=== PATIENT | male | born 1995 | race Caucasian/White ===

== ENCOUNTER 2023-09-04 15:21 | Emergency (ER) | payer OTHER, SELFPAY ==
--- NOTE | ~2023-09-04 | CT_ITS ---
EXAMINATION: CT abdomen pelvis w con DATE: 09/04/2023 17:04 INDICATION: RLQ pain TECHNIQUE: Computed tomography (CT) of the abdomen and pelvis was performed with 100 mL Omnipaque-350 intravenous contrast. Automated exposure control and iterative reconstruction technique were employe d. The dose-length product was 843.52 mGy-cm. COMPARISON: None. FINDINGS: Lower thorax: Unremarkable Liver: Mildly enlarged. Biliary/Gallbladder: Gallbladder is normal. No bile duct dilation. Pancreas: No mass or duct dilation. Spleen: Normal. Adrenals:No mass. Kidneys: No suspicious mass, obstructing stone, or hydronephrosis. GI tract: No small or large bowel dilation. Normal appendix. Mildly inflamed epiploic appendage exten ding off the anteromedial aspect of the ascending colon. Mesentery/Peritoneum: No ascites, mass, or free air. Retroperitoneum: No mass. Pelvis: Pelvic organs are within normal limits. Soft Tissues: Soft tissues and body wall unremarkable. Bones: No acute osseous finding. IMPRESSION: Mild hepatomegaly. Epiploic appendagitis of the ascending colon. Reviewed, dictated and finalized at location K.
[2023-09-04 15:35] VITALS: BP 141/96; PULSE 114; RESP 16; TEMP 36.5; O2SAT 100
[2023-09-04 16:18] VITALS: BP 133/86; PULSE 91; RESP 18; O2SAT 100
[2023-09-04 16:23] LABS: Basophils Absolute Auto 0.1 K/mm3 (0.0-0.1); Basophils Percent Auto 0.8 % (0.2-1.2); Eosinophils Absolute Auto 0.2 K/mm3 (0-0.3); Eosinophils Percent Auto 2.7 % (0-4.4); Hematocrit 48.8 % (42.0-52.0); Hemoglobin 17.1 g/dL (14.0-18.0); Immature Granulocyte Absolute 0.03 K/mm3 (0.00-0.031); Immature Granulocyte Percent A 0.4 % (0-0.5); Lymphocytes Percent Auto 32.2 % (18.3-44.2); Mean Corpuscular Hemoglobin 30.1 pg (26-34); Mean Corpuscular Volume 85.8 fl (80-100); Mean Platelet Volume 10.6 fl (7.4-10.4); Monocytes Absolute Auto 0.6 K/mm3 (0.1-0.6); Monocytes Percent Auto 8.7 % (2.6-8.5); Neutrophils Percent Auto 55.2 % (45.5-73.1); Platelet Count Result 242 k/mm3 (150-375); Red Blood Count 5.69 M/mm3 (4.6-6.20); Red Cell Distribution Width 12.9 % (11.5-14.5); White Blood Count 7.2 K/mm3 (4.5-10.0)
[2023-09-04 16:25] LABS: Appearance Urine Clear (Clear); Bilirubin Urine Negative (Negative); Blood Urine Negative (Negative); Color Urine Yellow (Yellow); Glucose Urine UA Negative (Negative); Ketones Urine Negative (Negative); Leukocyte Esterase Ur Negative LEU/UL (Negative); Nitrate Urine Negative (Negative); Protein Urine Negative (Negative); Specific Grav Ur 1.012 (1.001-1.035)
[2023-09-04 16:28] LABS: Add Urine Microscopic? NO
[2023-09-04 16:37] LABS: Alanine Aminotransferase 38 U/L (6-50); Alkaline Phosphatase 102 U/L (38-126); Anion Gap 9 mmol/L (4-12); Aspartate Amino Transferase 29 U/L (17-59); Bilirubin,Total 0.7 mg/dL (0.2-1.3); Blood Urea Nitrogen 10 mg/dL (9-20); Calcium 9.3 mg/dL (8.4-10.2); Carbon Dioxide 27 mmol/L (22-30); Chloride 104 mmol/L (98-107); Estimated CRCL calculation 136 ml/min; Estimated Glomerular Filt Rate > 60; Glucose 104 mg/dL (65-110); Lipase 47 U/L (23-300); Sodium 140 mmol/L (137-145)
--- NOTE | 2023-09-04 17:27 | ED.ABDPAIN ---
HPI - Abdominal Pain General Chief Complaint: Abdominal Pain Stated Complaint: abd pain Time Seen by Provider: 09/04/23 16:03 History of Present Illness HPI narrative: patient is a 27-year-old male who presents to the ER with right-sided abdominal pain. Aching over last 2 days but increased in pain today. It is in the lower abdomen and mid abdomen. He is concerned for appendicitis. Denies constipation. No fevers chills or sweats. No chest pain or chest pressure. No history kidney stones. Has not found any alleviating factors. Related Data Allergies Allergy/AdvReac Type Severity Reaction Status Date / Time No Known Allergies Allergy Mild Verified 01/29/08 14:56 Review of Systems Review of Systems: All systems reviewed & are unremarkable except as noted in HPI and below Constitutional: Constitutional: Reports no additional constitutional complaints ENT: Reports system reviewed and no additional complaints, except as documented Cardiovascular: Cardiovascular: Reports no additional cardiovascular complaints Respiratory: Respiratory: Reports no additional respiratory complaints Gastrointestinal: Gastrointestinal: Reports abdominal pain, Denies constipation, Denies diarrhea, Denies nausea and Denies vomiting Genitourinary: Genitourinary: Reports no additional male genitourinary complaints [facility] Past Medical History Medical History (Updated 09/04/23 @ 17:59 by Patricio Dominguez MD) Healthy adult male Surgical History Surgical History (Updated 09/04/23 @ 17:30 by Patricio Dominguez MD) No history of previous surgery Exam Narrative: GENERAL: Well-appearing, well-nourished, and in no acute distress. HEAD: Normocephalic, atraumatic. ENT: Mucous membranes moist. CHEST: Clear to auscultation. No respiratory distress. HEART: Regular rate and rhythm. Normal peripheral pulses. ABDOMEN: Soft, mild discomfort with palpation to the right mid and lower quadrants of the abdomen without guarding, nondistended. EXTREMITIES: Normal range of motion. No edema. SKIN: Warm, dry, no rash. NEURO: Alert and oriented x3. PSYCH: Normal mood and affect. Course Course Emergency Course: Patient informed of results. Does not wish to having pain medication here. Will be discharged home. Vital Signs Vital signs: Vital Signs Temperature 97.7 F 09/04/23 15:35 Pulse Rate 114 H 09/04/23 15:35 Respiratory Rate 16 09/04/23 15:35 Blood Pressure 141/96 H 09/04/23 15:35 Pulse Oximetry 100 09/04/23 15:35 Oxygen Delivery Room Air 09/04/23 15:35 Temperature 97.7 F 09/04/23 15:35 Pulse Rate 91 09/04/23 16:18 Respiratory Rate 18 09/04/23 16:18 Blood Pressure 133/86 09/04/23 16:18 Pulse Oximetry 100 09/04/23 16:18 Oxygen Delivery Room Air 09/04/23 15:35 MDM - Abdominal Pain Lab Data Attestation: I reviewed the patient's lab results. 09/04/23 16:16 09/04/23 16:16 Labs: Lab Results 09/04/23 Range/Units 16:16 WBC 7.2 (4.5-10.0) K/mm3 RBC 5.69 (4.6-6.20) M/mm3 Hgb 17.1 (14.0-18.0) g/dL Hct 48.8 (42.0-52.0) % MCV 85.8 (80-100) fl MCH 30.1 (26-34) pg MCHC 35.0 (32-36) g/dl RDW 12.9 (11.5-14.5) % Plt Count 242 (150-375) k/mm3 MPV 10.6 H (7.4-10.4) fl Immature Gran % (Auto) 0.4 (0-0.5) % Neut % (Auto) 55.2 (45.5-73.1) % Lymph % (Auto) 32.2 (18.3-44.2) % [place] % (Auto) 8.7 H (2.6-8.5) % Eos % (Auto) 2.7 (0-4.4) % Baso % (Auto) 0.8 (0.2-1.2) % Lymph # (Auto) 2.30 (0.9-3.2) K/mm3 [place] # (Auto) 0.6 (0.1-0.6) K/mm3 Eos # (Auto) 0.2 (0-0.3) K/mm3 Baso # (Auto) 0.1 (0.0-0.1) K/mm3 Abs Immat Gran (auto) 0.03 (0.00-0.031) K/mm3 Absolute Neuts (auto) 4.0 (1.3-6.7) K/mm3 Absolute Nucleated RBC 0.000 (0.0-0.012) K/mm3 Nucleated RBC % 0.0 (0.0-0.2) % Sodium 140 (137-145) mmol/L Potassium 4.0 (3.4-5.0) mmol/L Chloride 104 (98-107) mmol/L Carbon Dioxide 27 (22-30) mmol
[2023-09-04 18:17] VITALS: BP 117/83; PULSE 94; RESP 18; O2SAT 98
== END 2023-09-04 18:18 | disposition home or self-care (01) ==
PROVIDERS: Emergency Provider Emergency Medicine
DX: K63.89 Other specified diseases of intestine (principal)
CPT/HCPCS: 36415; 74177; 80053; 81003; 83690; 85025; 99284; Q9967